=== PATIENT | female | born 1995 | race Caucasian/White ===

== ENCOUNTER 2017-08-30 00:03 | Emergency (ER) | payer OTHER ==
[~2017-08-30] VITALS: Ht 162.6 cm; Wt 109.3 kg
[~2017-08-30 00:03] MED LIST: ALBU90OI INH; AMOX500 PO; AMOX50SU PO; CEPH500 PO; CODACE30 PO; ERYT.5TO OD; IBUP100S; PRED20 PO; RXCODACET PO; SULTRIDS PO
[2017-08-30] MEDS ORDERED: CEPH500 PO (01:38)
== END 2017-08-30 01:55 | disposition home or self-care (01) ==
LOC: ER 00:03
DX: J03.90 Acute tonsillitis, unspecified (principal); Z88.1 Allergy status to other antibiotic agents; Z88.8 Allergy status to other drugs, medicaments and biological substances
CPT/HCPCS: 87081; 87430; 99283; J1100